=== PATIENT | female | born 1975 | race Caucasian/White ===

== ENCOUNTER 2025-02-03 09:21 | Inpatient (IN) | payer OTHER ==
[~2025-02-03] VITALS: Ht 154.9 cm; Wt 70.2 kg
[2025-02-03 10:06] LABS: APPEARANCE,URINE HAZY (CLEAR); BILIRUBIN,URINE NEGATIVE (NEGATIVE); COLOR,URINE YELLOW (YELLOW); GLUCOSE, URINE (UA) NEGATIVE (NEGATIVE); KETONES,URINE NEGATIVE (NEGATIVE); LEUKOCYTE ESTERASE ,URINE LARGE (NEGATIVE); NITRATE,URINE NEGATIVE (NEGATIVE); OCCULT BLOOD,URINE LARGE (NEGATIVE); PROTEIN,URINE TRACE mg/dL (NEGATIVE); SPECIFIC GRAVITIY, URINE 1.008 (1.003-1.030); UROBILINOGEN,URINE <=1.0 mg/dL (<=1.0)
[2025-02-03 10:11] LABS: BASOPHILS % (AUTO) 0.5 % (0.0-2.0); EOSINOPHILS % (AUTO) 0.3 % (1.0-6.0); HEMOGLOBIN 10.2 g/dL (12.0-16.0); LYMPHOCYTES # (AUTO) 0.9 K/uL (1.0-4.8); LYMPHOCYTES % (AUTO) 10.8 % (22.0-44.0); MEAN CORPUSCULAR HEMOGLOBIN 20.9 pg (26.0-34.0); MEAN CORPUSCULAR VOLUME 67 fL (80-100); MONOCYTES # (AUTO) 0.5 K/uL (0.1-1.0); MONOCYTES % (AUTO) 6.5 % (2.0-9.0); NEUTROPHILS # (AUTO) 6.6 K/uL (1.8-7.7); NEUTROPHILS % (AUTO) 81.9 % (40.0-70.0); PLATELET COUNT (AUTO) 317 K/uL (150-450); RED BLOOD CELL COUNT(AUTO) 4.89 MIL/uL (4.00-5.20); RED CELL DISTRIBUTION WIDTH 17.4 % (11.5-14.5); WHITE BLOOD COUNT (AUTO) 8.1 K/uL (4.5-11.0)
[2025-02-03 10:14] LABS: RBC MORPHOLOGY COMMENT ABNORMAL RBC MORPH
[2025-02-03 10:18] LABS: ALCOHOL, URINE DRUG SCREEN NEGATIVE (NEGATIVE); AMPHET/METH SCREEN,URINE POSITIVE (NEGATIVE); BARBITURATE SCREEN, URINE NEGATIVE (NEGATIVE); BENZODIAZEPINES SCREEN,URINE NEGATIVE (NEGATIVE); CANNABINOID SCREEN,URINE NEGATIVE (NEGATIVE); COCAINE SCREEN,URINE NEGATIVE (NEGATIVE); METHADONE SCREEN, URINE NEGATIVE (NEGATIVE); OPIATE SCREEN,URINE NEGATIVE (NEGATIVE); PHENCYCLIDINE SCREEN,URINE NEGATIVE (NEGATIVE)
[2025-02-03 10:19] LABS: ANION GAP 6 mmol/L (8-16); CALCIUM, TOTAL 8.6 mg/dL (8.8-10.5); CARBON DIOXIDE 29 mmol/L (22-29); CHLORIDE 102 mmol/L (98-107); GLOMERULAR FILTR. RATE CALC > 60 mL/min (>60); GLUCOSE,RANDOM 89 mg/dL (70-110); SODIUM SERUM 137 mmol/L (136-145); UREA NITROGEN, BLOOD 7 mg/dL (7-18)
[2025-02-03 10:28] LABS: BACTERIA,URINE Moderate /HPF (None Seen); SQUAMOUS EPITHELIAL CELL,UR Many /LPF (None Seen); WBC,URINE >100 /HPF (0-5)
[2025-02-03] MEDS: HydrALAZINE HCL 20 MG/ML VIAL IVP ONE (10:32)
[2025-02-03] MEDS: PERTUSS(ACELL),DIPH,TET/PF 0.5 ML SYRINGE [ADULT] IM. ONE (10:33)
[2025-02-03] MEDS: CloNIDine HCL 0.1 MG TABLET PO ONE ×2 (11:24→12:53)
[2025-02-03] MEDS ORDERED: ONDANSETRON HCL 4 MG/2 ML VIAL IVP PRN (12:45)
[2025-02-03] MEDS ORDERED: MAGNESIUM HYDROXIDE SUSPENSION 30 ML UDCUP PO PRN (12:45)
[2025-02-03] MEDS: LORazepam 2 MG/ML VIAL IVP ONE (12:53)
[2025-02-03] MEDS: AmLODIPine BESYLATE 10 MG TABLET PO SCH (12:53)
[2025-02-03] MEDS: CefTRIAXone 1 GM/DEXTROSE 50 ML IV ONE (13:08)
[2025-02-03] MEDS: OxyCODONE HCL/ACETAMINOPHEN 5-325 MG TABLET PO PRN (13:52)
[2025-02-03] MEDS: HydrALAZINE HCL 20 MG/ML VIAL IVP PRN (13:52)
[2025-02-03] MEDS: LORazepam 2 MG/ML VIAL IVP PRN (13:52)
[2025-02-03] MEDS: POTASSIUM CHLORIDE 20 MEQ ER TABLET PO PRN (13:52)
[2025-02-03] MEDS: NITROPRUSSIDE SODIUM 50 MG in DEXTROSE 5%-WATER 248 ML IV PRN (14:28)
[2025-02-03 17:00] VITALS: BP 160/101; PULSE 101; RESP 14; TEMP 97.9; O2SAT 99
[2025-02-03] MEDS: FERROUS SULFATE 325 MG EC TABLET PO SCH (18:08)
[2025-02-03] MEDS ORDERED: SODIUM CHLORIDE 0.9% 250 ML IV ONE (19:53)
[2025-02-03] MEDS: POTASSIUM CHL 10 MEQ/WATER 50 ML IV PRN (19:55)
[2025-02-03 20:00] VITALS: BP 94/73; PULSE 100; RESP 22; TEMP 97.8; O2SAT 95
[2025-02-03] MEDS ORDERED: POTASSIUM CHLORIDE 20 MEQ ER TABLET PO PRN (20:45)
[2025-02-03] MEDS ORDERED: POTASSIUM CHLORIDE 10% 40 MEQ/30 ML LIQUID UDCUP PO PRN (20:45)
[2025-02-03] MEDS ORDERED: POTASSIUM CHL 10 MEQ/WATER 50 ML IV PRN ×2 (20:45)
[2025-02-03] MEDS: POTASSIUM CHLORIDE 10% 40 MEQ/30 ML LIQUID UDCUP PO PRN (21:04)
[2025-02-03] MEDS: FAMOTIDINE 20 MG TABLET PO SCH (21:04)
[2025-02-04] VITALS: BP 145/83; PULSE 96; RESP 24; TEMP 98; O2SAT 99
[2025-02-04] MEDS: POTASSIUM CHLORIDE 20 MEQ ER TABLET PO PRN (02:22)
[2025-02-04 04:00] VITALS: BP 168/98; PULSE 94; RESP 24; TEMP 98.9; O2SAT 98
[2025-02-04 05:51] LABS: BASOPHILS % (AUTO) 0.5 % (0.0-2.0); EOSINOPHILS % (AUTO) 0.4 % (1.0-6.0); HEMATOCRIT 35.6 % (36-46); HEMOGLOBIN 11.2 g/dL (12.0-16.0); LYMPHOCYTES # (AUTO) 1.7 K/uL (1.0-4.8); LYMPHOCYTES % (AUTO) 15.4 % (22.0-44.0); MEAN CORPUSCULAR HEMOGLOBIN 21.3 pg (26.0-34.0); MEAN CORPUSCULAR HGB CONC 31.5 G/dL (31.0-37.0); MEAN CORPUSCULAR VOLUME 68 fL (80-100); MONOCYTES % (AUTO) 9.2 % (2.0-9.0); NEUTROPHILS # (AUTO) 8.1 K/uL (1.8-7.7); NEUTROPHILS % (AUTO) 74.5 % (40.0-70.0); PLATELET COUNT (AUTO) 366 K/uL (150-450); RED BLOOD CELL COUNT(AUTO) 5.27 MIL/uL (4.00-5.20); RED CELL DISTRIBUTION WIDTH 17.7 % (11.5-14.5); WHITE BLOOD COUNT (AUTO) 10.9 K/uL (4.5-11.0)
[2025-02-04 05:51] LABS: GLUCOMETER DEV NAME(LOC) ICU.S6; GLUCOSE,POINT OF CARE 98 MG/DL (70-110)
[2025-02-04 05:57] LABS: ANION GAP 11 mmol/L (8-16); CARBON DIOXIDE 24 mmol/L (22-29); CHLORIDE 102 mmol/L (98-107); CREATININE 0.71 mg/dL (0.60-1.30); GLOMERULAR FILTR. RATE CALC > 60 mL/min (>60); GLUCOSE,RANDOM 96 mg/dL (70-110); POTASSIUM 3.6 mmol/L (3.5-5.1); SODIUM SERUM 137 mmol/L (136-145); UREA NITROGEN, BLOOD 6 mg/dL (7-18)
[2025-02-04] MEDS: CloNIDine HCL 0.1 MG TABLET PO PRN (06:06)
[2025-02-04 06:37] LABS: RBC MORPHOLOGY COMMENT ABNORMAL RBC MORPH
[2025-02-04 08:00] VITALS: PULSE 119
[2025-02-04] MEDS: LOSARTAN POTASSIUM 50 MG TABLET PO SCH (09:01)
[2025-02-04] MEDS: MULTIVITAMINS WITH MINERALS, THERAPEUTIC TABLET PO SCH (09:02)
[2025-02-04] MEDS: CloNIDine HCL 0.1 MG TABLET PO SCH (11:57)
[2025-02-04 12:00] VITALS: BP 164/110; PULSE 115; RESP 25; TEMP 99.5; O2SAT 98
[2025-02-04] MEDS: CefTRIAXone 1 GM/DEXTROSE 50 ML IV SCH (12:33)
[2025-02-04] MEDS: ACETAMINOPHEN 325 MG TABLET PO PRN (15:53)
[2025-02-04 16:00] VITALS: BP 171/112; PULSE 127; PULSE 131; RESP 23; TEMP 100; O2SAT 96
[2025-02-04 20:00] VITALS: BP 128/71; PULSE 99; RESP 23; TEMP 98; O2SAT 97
[2025-02-04] MEDS: ETHYL ALCOHOL 62% ANTISEPTIC NASAL SANITIZER 0.6 ML AMPUL NASAL ONE (22:17)
[2025-02-04] MEDS: CloNIDine HCL 0.1 MG TABLET PO ONE (22:28)
[2025-02-05] VITALS (7 sets, daily range): BP systolic 128–167; BP diastolic 62–110; PULSE 94–110; RESP 20–24; TEMP 97.9–98.7; O2SAT 97–100
[2025-02-05] MEDS: ZOLPIDEM TARTRATE 5 MG TABLET PO PRN (01:49)
[2025-02-05] MEDS: ETHYL ALCOHOL 62% ANTISEPTIC NASAL SANITIZER 0.6 ML AMPUL NASAL SCH (08:54)
[2025-02-05] MEDS: LACTOBAC ACID/BULG/BIFID/THERM TABLET PO SCH (09:30)
[2025-02-05 12:32] LABS: BASOPHILS % (AUTO) 0.7 % (0.0-2.0); EOSINOPHILS % (AUTO) 0.2 % (1.0-6.0); HEMATOCRIT 35.8 % (36-46); LYMPHOCYTES # (AUTO) 1.5 K/uL (1.0-4.8); LYMPHOCYTES % (AUTO) 16.6 % (22.0-44.0); MEAN CORPUSCULAR HEMOGLOBIN 20.9 pg (26.0-34.0); MEAN CORPUSCULAR HGB CONC 30.7 G/dL (31.0-37.0); MEAN CORPUSCULAR VOLUME 68 fL (80-100); MONOCYTES # (AUTO) 0.7 K/uL (0.1-1.0); MONOCYTES % (AUTO) 8.1 % (2.0-9.0); NEUTROPHILS # (AUTO) 6.6 K/uL (1.8-7.7); NEUTROPHILS % (AUTO) 74.4 % (40.0-70.0); PLATELET COUNT (AUTO) 365 K/uL (150-450); RED BLOOD CELL COUNT(AUTO) 5.25 MIL/uL (4.00-5.20); RED CELL DISTRIBUTION WIDTH 18.2 % (11.5-14.5); WHITE BLOOD COUNT (AUTO) 8.9 K/uL (4.5-11.0)
[2025-02-05 12:44] LABS: ANION GAP 7 mmol/L (8-16); CALCIUM, TOTAL 8.8 mg/dL (8.8-10.5); CARBON DIOXIDE 25 mmol/L (22-29); CHLORIDE 104 mmol/L (98-107); CREATININE 0.78 mg/dL (0.60-1.30); GLOMERULAR FILTR. RATE CALC > 60 mL/min (>60); GLUCOSE,RANDOM 105 mg/dL (70-110); SODIUM SERUM 136 mmol/L (136-145); UREA NITROGEN, BLOOD 12 mg/dL (7-18)
[2025-02-05 13:29] LABS: RBC MORPHOLOGY COMMENT ABNORMAL RBC MORPH
[2025-02-05] MEDS ORDERED: SODIUM CHLORIDE 0.9% 500 ML IV ONE (13:41)
[2025-02-05 18:36] LABS: GLUCOMETER DEV NAME(LOC) 5N.1D; GLUCOSE,POINT OF CARE 98 MG/DL (70-110)
[2025-02-06] VITALS: BP 131/91; PULSE 100; RESP 18; TEMP 98.4; O2SAT 99
[2025-02-06 04:36] VITALS: BP 134/77; PULSE 87; RESP 18; TEMP 98.6; O2SAT 100
[2025-02-06 06:14] LABS: EOSINOPHILS % (AUTO) 3.3 % (1.0-6.0); HEMATOCRIT 34.8 % (36-46); HEMOGLOBIN 10.9 g/dL (12.0-16.0); LYMPHOCYTES # (AUTO) 1.5 K/uL (1.0-4.8); LYMPHOCYTES % (AUTO) 22.5 % (22.0-44.0); MEAN CORPUSCULAR HEMOGLOBIN 21.4 pg (26.0-34.0); MEAN CORPUSCULAR HGB CONC 31.2 G/dL (31.0-37.0); MEAN CORPUSCULAR VOLUME 69 fL (80-100); MONOCYTES # (AUTO) 0.7 K/uL (0.1-1.0); MONOCYTES % (AUTO) 10.4 % (2.0-9.0); NEUTROPHILS # (AUTO) 4.2 K/uL (1.8-7.7); NEUTROPHILS % (AUTO) 62.8 % (40.0-70.0); PLATELET COUNT (AUTO) 349 K/uL (150-450); RED BLOOD CELL COUNT(AUTO) 5.07 MIL/uL (4.00-5.20); WHITE BLOOD COUNT (AUTO) 6.8 K/uL (4.5-11.0)
[2025-02-06 06:22] LABS: ANION GAP 8 mmol/L (8-16); CALCIUM, TOTAL 8.6 mg/dL (8.8-10.5); CARBON DIOXIDE 24 mmol/L (22-29); CHLORIDE 104 mmol/L (98-107); CREATININE 0.73 mg/dL (0.60-1.30); GLOMERULAR FILTR. RATE CALC > 60 mL/min (>60); GLUCOSE,RANDOM 82 mg/dL (70-110); POTASSIUM 3.8 mmol/L (3.5-5.1); SODIUM SERUM 136 mmol/L (136-145); UREA NITROGEN, BLOOD 12 mg/dL (7-18)
[2025-02-06 09:01] LABS: RBC MORPHOLOGY COMMENT ABNORMAL RBC MORPH
[2025-02-06 09:45] VITALS: BP 134/91; PULSE 96; RESP 17; TEMP 98.2; O2SAT 100
[2025-02-06 12:51] VITALS: BP 129/88; PULSE 87; RESP 17; TEMP 98.2; O2SAT 98
[2025-02-06] MEDS ORDERED: SULFAMETHOX/TRIMETH DS 800-160 MG/TABLET PO SCH (21:00)
== END 2025-02-06 13:55 | DRG 305 ==
LOC: EMS 09:25 → EDH 13:00 → ICU 16:40 → 5S 02-05 10:05
PROVIDERS: ADMIT Internal Medicine; ATTEND Internal Medicine
DX: I16.1 Hypertensive emergency (principal); F11.23 Opioid dependence with withdrawal; N39.0 Urinary tract infection, site not specified; D50.9 Iron deficiency anemia, unspecified; E87.6 Hypokalemia; E66.9 Obesity, unspecified; F19.10 Other psychoactive substance abuse, uncomplicated; Z68.29 Body mass index [BMI] 29.0-29.9, adult
CPT/HCPCS: 70486; 80048; 80307; 81001; 82962; 84132; 85025; 87081; 87086; 90715; 93005; 96372; 96374; 96375; 99291; G0480; J0360; J0696; J2060; J3480; J3490; J7040; J7050; J7060